=== PATIENT | male | born 1970 | race Caucasian/White ===

== ENCOUNTER → 2019-02-06 10:38 | Outpatient (CLI) | payer BC, SELFPAY ==
--- NOTE | 2019-02-06 10:44 | XR_ITS ---
PROCEDURE: XR FOOT RT MIN 3V CLINICAL INDICATION: ACUTE RT ANKLE PAIN Pain laterally following injury COMPARISON: FTR3 FOOT-RT-3 VIEWS from 12/19/2014 XR ANKLE RT MIN 3V from 02/06/2019 FINDINGS: No fracture or dislocation. No lytic or blastic change. There is normal mineralization. The joint spaces are well-preserved. No significant degenerative/arthritic changes. No erosive changes evident. Other findings:None. IMPRESSION: No acute findings. Dictated by: Dougie Suarez MD 02/06/2019 11:19 Electronically signed by Dougie Suarez MD in [place] 02/06/2019 11:19
--- NOTE | 2019-02-06 10:44 | XR_ITS ---
PROCEDURE: XR ANKLE RT MIN 3V CLINICAL INDICATION: ACUTE RT ANKLE PAIN COMPARISON: ANKR3 ANKLE-RT-3 VIEWS from 12/19/2014 XR FOOT RT MIN 3V from 02/06/2019 FINDINGS: No fracture, dislocation, lytic change, or blastic change evident. No significant degenerative change IMPRESSION: No acute findings. Dictated by: Dougie Suarez MD 02/06/2019 11:18 Electronically signed by Dougie Suarez MD in [place] 02/06/2019 11:18
== END ==
PROVIDERS: PCP Nurse Practitioner; Visit Provider Nurse Practitioner
DX: M25.571 Pain in right ankle and joints of right foot (principal)
CPT/HCPCS: 73610; 73630

== ENCOUNTER → 2019-10-30 07:39 | Outpatient (CLI) | payer BC, SELFPAY ==
--- NOTE | 2019-10-30 07:43 | MR_ITS ---
PROCEDURE: MR HEAD/BRAIN WO CON CLINICAL INDICATION: DIZZINESS, VISUAL CHANGES Double vision COMPARISON: No exams were available for comparison TECHNIQUE: Routine multiplanar multi echo sequences are performed without gadolinium enhancement. FINDINGS: No midline shift, mass effect, intracranial hemorrhage, or hydrocephalus. The cerebellopontine angles, cerebellum, and brainstem have an unremarkable appearance. The pituitary, optic chiasm, corpus callosum, and craniocervical junction unremarkable. No abnormal white matter signal intensity. No mastoid effusion or sinus air-fluid level. IMPRESSION: Negative MRI of the brain without contrast Dictated by: Dougie Suarez MD 10/31/2019 12:00 Electronically signed by Dougie Suarez MD in [place] 10/31/2019 12:00
== END ==
PROVIDERS: PCP Nurse Practitioner; Visit Provider Nurse Practitioner Family
DX: R42 Dizziness and giddiness (principal); H53.9 Unspecified visual disturbance
CPT/HCPCS: 70551

== ENCOUNTER → 2019-11-13 09:37 | Outpatient (CLI) | payer BC, SELFPAY | PROVIDERS: PCP Nurse Practitioner; Visit Provider Nurse Practitioner | DX: G47.33 Obstructive sleep apnea (adult) (pediatric) (principal); R40.0 Somnolence | CPT/HCPCS: G0399 ==

== ENCOUNTER → 2020-02-15 06:44 | Outpatient (CLI) | payer BC, SELFPAY ==
--- NOTE | 2020-02-15 | CA_ITS ---
APPROVED REPORT Refuge Manager: Viviana Caldwell RVT Laterality: Bilateral Study Quality: Good Indications: Dizziness and Vertigo, Syncope Doppler Spectral Velocity Analysis ECA (R) 65.10/20.60 cm/s ECA (L) 102.10/23.10 cm/s dICA (R) 66.00/32.60 cm/s dICA (L) 66.80/32.70 cm/s Ángel (R) 82.30/45.40 cm/s Ángel (L) 80.30/37.90 cm/s pICA (R) 72.80/19.70 cm/s pICA (L) 73.80/32.70 cm/s dCCA (R) 102.80/27.40 cm/s dCCA (L) 84.10/28.30 cm/s pCCA (R) 63.40/14.60 cm/s pCCA (L) 73.80/16.70 cm/s Vert (R) 34.80/16.60 cm/s Vert (L) 35.50/14.10 cm/s ICA/CCA 0.80 ICA/CCA 0.95 Findings Study suggests no evidence of stenosis of the bilateral internal cartoid arteries. Antegrade flow seen bilateral vertebral arteries. Conclusion Study suggests no evidence of stenosis of the bilateral internal cartoid arteries. Antegrade flow seen bilateral vertebral arteries. Electronically signed by : Dougie Suarez MD 02/16/2020 17:06:02
--- NOTE | 2020-02-15 | CA_ITS ---
APPROVED REPORT Exam: Exercise Treadmill Technologist: Amelie Boyd, Ht: 6 ft 0 in Wt: 235 lbs BSA: 2.28 m2 HR: 72 bpm BP: 129/82 mmHg Rhythm: NSR,ST-T ABN IN LEADSIII,aVF Medical History Medical History: Hyperlipidemia Medications: CHOLESTEROL MED,,,,, Stress Test Details Test: Andrés HR Resting HR: 82 bpm Max Heart Rate (APMHR): 171 bpm Max HR Achieved: 154 bpm Target HR (85% APMHR): 145 bpm % of APMHR: 90 Recovery HR: 129 bpm BP Resting BP: 129.0/82.0 mmHg Max BP: 164.0/84.0 mmHg Recovery BP: 164.0/84.0 mmHg ECG Resting ECG: NSR,ST-T ABN IN LEADS III,aVF Clinical Exercise duration: 09:01 min Highest Stage Achieved: Exercise capacity: 10.1 METs Stress ECG Conclusion PATIENT EXERCISED 9:00 MINUTES ON ANDRÉS PROTOCOL. MAX HEART RATE 154 BPM WHICH IS 90% OF PM FOR AGE. MAX BP 164/84. METS = 10.1. TEST STOPPED DUE TO LEG FATIGUE AND SOA. NO CHEST PAIN. RARE FUSION BEAT. NORMAL ST RESPONSE TO EXERCISE. NORMAL GXT. MYOVIEW IMAGES REPORTED SEPARATELY. Test Summary Stage 3 02:00 14.0 3.4 149 . . . Cardiolite injected REST . . . . . . . Sitting REST 05:11 0.0 0.0 82 . 129/ 82 . . Stage 1 01:00 10.0 1.7 108 . . . . Stage 1 02:00 10.0 1.7 110 . . . . Stage 1 03:00 10.0 1.7 109 . 144/ 88 . . Stage 2 01:00 12.0 2.5 120 . . . . Stage 2 02:00 12.0 2.5 130 . . . . Stage 2 03:00 12.0 2.5 135 . 158/ 82 . . Stage 3 01:00 14.0 3.4 145 . . . . Stage 3 . . . . . . . Cardiolite injected Stage 3 02:00 14.0 3.4 149 . . . . Stage 3 . . . . . . . Stage held Stage 3 03:00 14.0 3.4 153 . . . . Stage 3 . . . . . . . Stage resumed Stage 3 03:01 14.0 3.4 153 . . . Stop exercise at 09:01 RECOVERY 01:00 0.0 0.0 127 . . . . RECOVERY 02:00 0.0 0.0 112 . 164/ 84 . . RECOVERY 03:00 0.0 0.0 104 . 133/ 88 . . RECOVERY 04:00 0.0 0.0 96 . 150/ 89 . . RECOVERY 05:00 0.0 0.0 101 . 141/ 87 . . RECOVERY 05:18 0.0 0.0 103 . 141/ 87 . . Electronically signed by : Colten Sandoval, 02/16/2020 15:02:50
--- NOTE | 2020-02-15 | CA_ITS ---
APPROVED REPORT EXAM: Comprehensive 2D, Doppler, and color-flow Echocardiogram [employer] Furniture Reproducer: Myranda Paulino RT(R) Ht: 5 ft 11 in Wt: 235lbs BSA: 2.26 BP: 145/84 mmHg Indications: dizziness, syncope, HTN, hyperlpidemia, MACKEY, obesity 2D Dimensions LVOT 1.95 cm (M/F) 1.5-2.5 M-Mode Dimensions RVDd 2.46 cm (0.9-2.6) LA Diam 3.58 cm (1.9-4.0) LVDd 4.75 cm (3.5-5.7) Ao Diam 3.11 cm (2.0-3.7) LVDs 3.27 cm (3.5-5.7) IVSd 1.06 cm (0.6-1.1) PWd 1.10 cm (0.6-1.1) EF (Teich) 58.80% FS 31.20% EDV (Teich) 104.90 mL ESV (Teich) 43.20 mL LV Diastology E Decel Time 150.00 (160-240 msec) E/A Ratio 0.8 MED E' 7.10 (< 7 cm/sec) E'/MED E' Ratio 11.13 (>14) LAT E' 9.30 (<10 cm/sec) E/LAT E' Ratio 8.49 (>14) Aortic Valve LVOT Max 97.00 (70-110 cm/s) LVOT VTI 20.95 cm AoV Peak James. 235.00 (50-130 cm/s) AO Peak GR. 22.10 mmHg AO Mean GR. 10.80 (<5 mmHg) AO VTI 45.51 (18-25 cm) DAMARIS (VTI) 1.37 (2.5-4.5 cm2) Mitral Valve MV E Max James. 79.00 (40-130 cm/s) MV A Velocity 99.00 (40-130 cm/s) E/A Ratio 0.80 MV Decel. Time 150.00 (160-240 ms) MV PHT 44.00 ms Left Ventricle Left atrium is mildly enlarged, ventricle is normal size, mild concentric ventricular hypertrophy, visually estimated ejection fraction 55% with no regional wall motion abnormality, grade 1 diastolic dysfunction seen without tissue Doppler evidence of raise left atrial pressure. Right Ventricle Right atrium right ventricle normal size and contractility. Aortic Valve Aortic valve is thickened and calcified with restriction to leaflet mobility, the mean gradient across aortic valve is 12 mmHg, valve area is 1.4 cm??? represents a mild aortic stenosis, there is no significant aortic insufficiency. Mitral Valve Mitral valve leaflets are minimally thickened, there is mild mitral regurgitation. Tricuspid Valve Tricuspid valve is grossly normal, there is mild tricuspid regurgitation, tricuspid regurgitation jet processing adequate for calculation of the right ventricular systolic pressure. Pulmonic Valve Pulmonic valve is poorly visualized. Great Vessels Aortic root is normal size. Pericardium No significant pericardial effusion noted. Conclusion 1. Mildly low left atrium, normal left ventricular size, mild concentric left ventricular hypertrophy, visually estimated ejection fraction 55% with no regional wall motion abnormality, grade 1 diastolic dysfunction seen without tissue Doppler evidence of raise left atrial pressure. 2. Thickened and calcified aortic valve with valve area of 1.4 cm??? represents mild uric stenosis, there is no significant aortic insufficiency. 3. Mild mitral and tricuspid regurgitation. 4. No significant pericardial effusion noted. Electronically signed by : Colten Sandoval, 02/15/2020 15:13:56
--- NOTE | 2020-02-15 06:58 | NM_ITS ---
APPROVED REPORT Exam: Nuclear Stress Test Indication: HYPERLIPIDEMIA, SYNCOPE Patient Location: Outpatient Stress Tech: Beatriz Fierro [place] Tech:Tsering Brown, ARRT, RT (R)(N) Ht: 6 ft 0 in Wt: 235 lbs HR: 725 bpm BP: 129/82 mmHg BSA: 2.28 m2 History: HYPERLIPIDEMIA, SYNCOPE Procedure: Patient exercised on Andrés protocol 9:00 minutes and sec, resting heart rate 72 bpm, resting blood pressure 129/82 mmHg, with exercise maximum heart rate achived was 154 bpm which is 90 % of the maximum predicted heart rate and blood pressure was 164/84 mmHg. Patient denied any complaint of chest pain. Patient has Adequate exercise capacity, achieved 10.1 METs of workload on treadmill, the blood pressure response to exercise was Adequate. Electrocardiogram Resting electrocardiogram showed sinus rhythm, with exercise there is less than 1.[address] segment depression noted from the baseline EKG. The EKG portion of the exercise Myoview is negative for ischemia. Cardiac Stress and Resting SPECT Images: Cardiac Stress and Resting SPECT images were obtained using technetium 99m Myoview 30.8 mCi stress and 10.08 mCi at rest. Gated SPECT for analysis of segmental wall motion and calculation of the ejection fraction also done. Cardiac stress and resting SPECT images show decreased tracer activity in the inferior wall which improves on the resting images suggestive of reversible ischemia, computer derived ejection fraction is 58% with no regional wall motion abnormality, right ventricle is normal size and contractility. Conclusion: 1. The EKG portion of the exercise Myoview is negative for ischemia, patient has good exercise capacity achieved 10.1 mets of workload on treadmill, the blood pressure response to exercise was adequate, there was no exercise-induced chest discomfort. 2. Scintigraphic evidence of reversible ischemia involving the inferior wall, computer derived ejection fraction is 58% with no regional wall motion abnormality, right ventricle is normal size and contractility 3. Abnormal exercise Myoview study. Electronically signed by : Colten Sandoval, 02/16/2020 15:06:58
== END ==
PROVIDERS: PCP Nurse Practitioner; Visit Provider Nurse Practitioner
DX: R42 Dizziness and giddiness (principal); R55 Syncope and collapse
CPT/HCPCS: 78452; 93017; 93306; 93880; A9502

== ENCOUNTER → 2020-02-20 09:06 | Outpatient (CLI) | payer BC, SELFPAY ==
[2020-02-20 12:03] LABS: Thyroid Stimulating Hormone 2.46 uIU/mL (0.465-4.68)
== END ==
PROVIDERS: PCP Nurse Practitioner; Visit Provider Specialist
DX: R42 Dizziness and giddiness (principal); R55 Syncope and collapse; I35.0 Nonrheumatic aortic (valve) stenosis; Z68.33 Body mass index [BMI] 33.0-33.9, adult
CPT/HCPCS: 36415; 84443; 93270; 94762

== ENCOUNTER → 2020-02-21 13:07 | Outpatient (CLI) | payer BC, SELFPAY ==
[2020-02-21 13:40] LABS: Basophils # 0.1 K/mm3 (0-0.2); Eosinophils # 0.1 K/mm3 (0.0-0.4); Eosinophils % 1.3 % (0.1-12.0); Hematocrit 50.7 % (42.0-52.0); Hemoglobin 16.7 g/dL (14.1-18.0); Lymphocytes # 2.5 K/mm3 (0.7-4.5); Lymphocytes % 30.5 % (10-50); Mean Corpuscular HGB Conc 32.9 g/dL (31.8-35.4); Mean Corpuscular Hemoglobin 30.6 pg (27.0-31.2); Mean Platelet Volume 8.1 fl (7.4-10.4); Monocytes # 0.4 K/mm3 (0.1-1.0); Monocytes % 5.3 % (1.7-9.3); Neutrophils % 61.9 % (37.0-80.0); Platelet Count 248 K/mm3 (142-424); Red Blood Count 5.45 M/mm3 (4.60-6.20); Red Cell Distribution Width 13.9 % (11.5-17.5); White Blood Count 8.1 K/mm3 (4.8-10.8)
[2020-02-21 15:00] LABS: Anion Gap 15.2 mEq/L (5-15); Blood Urea Nitrogen 15 mg/dl (9-20); Calcium 9.3 mg/dl (8.4-10.2); Carbon Dioxide 26 mmol/L (22.0-30.0); Chloride 102 mmol/L (98-107); Estimated Glomerular Filt Rate 79 ml/min (>60); GFR (African American) 96 ML/MIN (>60); Glucose 96 mg/dl (74-100); Potassium 4.2 mmoL/L (3.5-5.1); Sodium 139 mmol/L (136-145)
[2020-02-21 15:51] LABS: Coronavirus 19 IgG Antibody Negative (Negative); Coronavirus 19 IgM Antibody Negative (Negative)
== END ==
PROVIDERS: Visit Provider Internal Medicine
DX: Z01.818 Encounter for other preprocedural examination (principal)
CPT/HCPCS: 36415; 80048; 85025; 86328

== ENCOUNTER 2020-02-22 08:37 | Day surgery (SDC) | payer BC, SELFPAY ==
[2020-02-22] VITALS (13 sets, daily range): BP systolic 114–162; BP diastolic 71–101; PULSE 68–87; RESP 16; TEMP 36.9; O2SAT 94–99; BMI 33.5
--- NOTE | 2020-02-22 | IR_ITS ---
APPROVED REPORT Patient Location: Outpatient PROCEDURES Left heart catheterization Left ventriculogram Selective coronary angiogram INDICATION Abnormal Myoview Informed consent was obtained prior to the procedure. COMPLICATIONS NONE Estimated Blood Loss: LESS THAN 10 ML TECHNIQUE One percent lidocaine used to anesthetize the right anterior aspect of the wrist. The right radial artery was accessed via the Seldinger technique. A 6 Malay sheath was placed in the right radial artery. 2.5 mg of verapamil, 800 mcg of nitroglycerin, 1mg Lidocaine and 5000 U Heparin were given through the arterial sheath. The trap catheter was also used to perform left heart catheterization, left ventriculogram and selective coronary angiogram. At the end of the procedure the sheath was removed good hemostasis was achieved using Traclet band, patient was transferred to the postop holding area in stable condition. ANGIOGRAPHIC RESULTS The left main artery Normal The left anterior descending artery Has mild mid vessel 10 to 20% luminal irregularities The circumflex artery Small and normal The right coronary artery Is a massively large dominant vessel supplying a large portion of the left ventricle and is angiographically normal The ALAMO ventriculogram reveals Normal 65% The left ventricular end-diastolic pressure 10 mmHg IMPRESSION Mild mid LAD luminal irregularities Normal ejection fraction Normal left ventricular end-diastolic pressure PLAN 1. Evaluation of noncardiac chest pain 2. Medical management Electronically signed by : Alpesh Chester, 02/22/2020 11:45:04
== END 2020-02-22 14:36 | disposition home or self-care (01) ==
PROVIDERS: PCP Nurse Practitioner; Visit Provider Internal Medicine
DX: R94.30 Abnormal result of cardiovascular function study, unspecified (principal); R55 Syncope and collapse; I35.0 Nonrheumatic aortic (valve) stenosis; Z87.891 Personal history of nicotine dependence
CPT/HCPCS: 93458; 99152; C1725; C1760; C1769; J1644; Q9967

== ENCOUNTER → 2020-03-05 09:26 | Outpatient (POV) | payer BC, SELFPAY | PROVIDERS: Visit Provider Otolaryngology | DX: Z00.00 Encounter for general adult medical examination without abnormal findings (principal) ==

== ENCOUNTER → 2020-04-09 10:44 | Outpatient (CLI) | payer BC, SELFPAY ==
[2020-04-09 11:11] LABS: Basophils # 0.1 K/mm3 (0-0.2); Basophils % 1.2 % (0.1-2.0); Eosinophils # 0.1 K/mm3 (0.0-0.4); Hematocrit 51.8 % (42.0-52.0); Hemoglobin 17.6 g/dL (14.1-18.0); Lymphocytes # 2.3 K/mm3 (0.7-4.5); Lymphocytes % 33.1 % (10-50); Mean Corpuscular HGB Conc 33.9 g/dL (31.8-35.4); Mean Corpuscular Hemoglobin 31.6 pg (27.0-31.2); Mean Corpuscular Volume 93.2 fl (80-94); Mean Platelet Volume 8.8 fl (7.4-10.4); Monocytes # 0.4 K/mm3 (0.1-1.0); Monocytes % 5.2 % (1.7-9.3); Neutrophils # 4.1 K/mm3 (1.8-7.8); Neutrophils % 58.5 % (37.0-80.0); Platelet Count 239 K/mm3 (142-424); Red Blood Count 5.55 M/mm3 (4.60-6.20); Red Cell Distribution Width 14.5 % (11.5-17.5); White Blood Count 7.1 K/mm3 (4.8-10.8)
[2020-04-09 12:20] LABS: Chloride 101 mmol/L (98-107); Potassium 4.6 mmoL/L (3.5-5.1); Sodium 137 mmol/L (136-145)
[2020-04-09 12:23] LABS: Alanine Aminotransferase 36 U/L (12-78); Albumin Level 4.5 g/dl (3.5-5.0); Albumin/Globulin Ratio 1.5 (1.1-1.8); Alkaline Phosphatase 66 U/L (38-126); Anion Gap 10.6 mEq/L (5-15); Aspartate Amino Transferase 33 U/L (17-59); Bilirubin,Total 0.7 mg/dl (0.2-1.3); Blood Urea Nitrogen 16 mg/dl (9-20); Carbon Dioxide 30 mmol/L (22.0-30.0); Estimated Glomerular Filt Rate 79 ml/min (>60); GFR (African American) 96 ML/MIN (>60); Globulin 3.1 g/dL (1.3-3.2); Total Protein,Serum 7.6 g/dl (6.3-8.2)
[2020-04-09 12:24] LABS: Calcium 9.4 mg/dl (8.4-10.2); Glucose 108 mg/dl (74-100)
[2020-04-09 12:39] LABS: Troponin I < 0.01 ng/ml (0.00-0.034)
== END ==
PROVIDERS: Visit Provider Nurse Practitioner Family
DX: R07.9 Chest pain, unspecified (principal); I10 Essential (primary) hypertension
CPT/HCPCS: 36415; 80053; 84484; 85025

== ENCOUNTER → 2020-04-16 09:24 | Outpatient (POV) | payer BC, SELFPAY | PROVIDERS: Visit Provider Otolaryngology | DX: Z00.00 Encounter for general adult medical examination without abnormal findings (principal) ==